=== PATIENT | male | born 1990 | race American Indian/Alaskan Native ===

== ENCOUNTER 2020-07-23 14:43 | Emergency (ER) | payer BC ==
--- NOTE | 2020-07-23 15:38 | Emergency Department Report ---
ED Abdominal Pain HPI - General Chief Complaint: Abdominal Pain Stated Complaint: ABD PAINS Time Seen by Provider: 07/23/20 15:20 Source: patient Mode of arrival: Ambulatory Limitations: No Limitations - History of Present Illness Initial Comments: pt is a 30 yo male who presents to the ED with c/o LLQ abd pain that began 3 days ago. he states the pain radiates to his left groin. he states he has generalized body aches. he denies any fever, cough, SOB, n/v/d, penile discharge, testicular edema. he denies any concerns for STD. he states he had a normal BM today. PMHx none. no allergies to meds. he denies any past abdominal surgical history. - Related Data Previous Rx's Medication Instructions Recorded Last Taken Type Acetaminophen/Codeine [Tylenol 1 tab PO Q6H PRN #12 tab 07/23/20 Unknown Rx /Codeine # 3 tab] Azithromycin [Zithromax Z-YOHANA] 250 mg PO DAILY 5 Days #6 tablet 07/23/20 Unknown Rx Prednisone [predniSONE 10 mg 10 mg PO .TAPER #1 tab.ds.pk 07/23/20 Unknown Rx (6-Day Pack, 21 Tabs)] Allergies Allergy/AdvReac Type Severity Reaction Status Date / Time No Known Allergies Allergy Unverified 07/23/20 15:35 ED Review of Systems ROS: Stated complaint: ABD PAINS Other details as noted in HPI Comment: All other systems reviewed and negative ED Past Medical Hx - Past Medical History Previous Medical History?: No Additional medical history: hx of elevated BP - Surgical History Past Surgical History?: No - Social History Smoking Status: Never Smoker Substance Use Type: Alcohol - Medications Home Medications: Home Medications Medication Instructions Recorded Confirmed Last Taken Type Acetaminophen/Codeine [Tylenol 1 tab PO Q6H PRN #12 tab 07/23/20 Unknown Rx /Codeine # 3 tab] Azithromycin [Zithromax Z-YOHANA] 250 mg PO DAILY 5 Days #6 tablet 07/23/20 Unknown Rx Prednisone [predniSONE 10 mg 10 mg PO .TAPER #1 tab.ds.pk 07/23/20 Unknown Rx (6-Day Pack, 21 Tabs)] ED Physical Exam - General Limitations: No Limitations General appearance: alert, in no apparent distress - Head Head exam: Present: atraumatic, normocephalic - Eye Eye exam: Present: normal appearance - ENT ENT exam: Present: mucous membranes moist - Respiratory Respiratory exam: Present: normal lung sounds bilaterally. Absent: respiratory distress, wheezes, rales, rhonchi, stridor, chest wall tenderness, accessory muscle use, decreased breath sounds, prolonged expiratory - Cardiovascular Cardiovascular Exam: Present: regular rate, normal rhythm, normal heart sounds. Absent: systolic murmur, diastolic murmur, rubs, gallop - GI/Abdominal GI/Abdominal exam: Present: soft, tenderness (LLQ and left inguinal ttp, no edema to the inguinal canal, no signs of hernia ), normal bowel sounds. Absent: distended, guarding, rebound, rigid - exam: Present: other (production artist: Lynnette lindsey PA-C, no testicular ttp, no scrotal edema, normal testicular lie, normal cremasteric reflex ). Absent: testicular tenderness, urethral discharge, scrotal swelling External exam: Present: normal external exam - Neurological Exam Neurological exam: Present: alert, oriented X3 - Psychiatric Psychiatric exam: Present: normal affect, normal mood - Skin Skin exam: Present: warm, dry, intact ED Course Vital Signs 07/23/20 07/23/20 15:01 18:05 Temperature 99.0 F 98.2 F Pulse Rate 93 H 83 Respiratory 18 16 Rate Blood Pressure 160/108 Blood Pressure 148/92 [Right] O2 Sat by Pulse 95 99 Oximetry ED Medical Decision Making - Lab Data Result diagrams: 07/23/20 15:29 07/23/20 15:29 Lab Results 07/23/20 07/23/20 07/23/20 Range/Units 15:29 15:29 15:35 WBC 4.5 (4.5-11.0) K/mm3 RBC 5.32 H (3.65-5.03) M/mm3 Hgb 16.0 H (11.8-15.2) gm/dl Hct 46.8 H (35.5-45.6) % MCV 88 (84-94) fl MCH 30 (28-32) pg MCHC 34 (32-34) % RDW 13.7 (13.2-15.2) % Plt Count 217 (140-440) K/mm3 Whitley % (Auto) Packaging Design Engineer Add Manual Diff Complete Total Counted 100 Seg Neuts % (Manual) 50.0 (40.0-70.0) % Lymphocytes % (Manual) 31.0 (13.4-35.0) % Monocytes % (Manual) 17.0 H (0.0-7.3) % Eosinophils % (Manual) 1.0 (0.0-4.3) % Basophils % (Manual) 1.0 (0.0-1.8) % Nucleated RBC % Not Reportable Seg Neutrophils # Man 2.3 (1.8-7.7) K/mm3 Band Neutrophils # 0.0 K/mm3 Lymphocytes # (Manual) 1.4 (1.2-5.4) K/mm3 Abs React Lymphs (Man) 0.0 K/mm3 Monocytes # (Manual) 0.8 (0.0-0.8) K/mm3 Eosinophils # (Manual) 0.0 (0.0-0.4) K/mm3 Basophils # (Manual) 0.0 (0.0-0.1) K/mm3 Metamyelocytes # 0.0 K/mm3 Myelocytes # 0.0 K/mm3 Promyelocytes # 0.0 K/mm3 Blast Cells # 0.0 K/mm3 WBC Morphology Not Reportable Hypersegmented Neuts Not Reportable Hyposegmented Neuts Not Reportable Hypogranular Neuts Not Reportable Smudge Cells Not Reportable Toxic Granulation Not Reportable Toxic Vacuolation Not Reportable Dohle Bodies Not Reportable Pelger-Huet Anomaly Not Reportable Rossana Rods Not Reportable Platelet Estimate Not Reportable Clumped Platelets Not Reportable Plt Clumps, EDTA Not Reportable Large Platelets Not Reportable Giant Platelets Rare Platelet Satelliting Not Reportable Plt Morphology Comment Not Reportable RBC Morphology Normal Dimorphic RBCs Not Reportable Polychromasia Not Reportable Hypochromasia Not Reportable Poikilocytosis Not Reportable Anisocytosis Not Reportable Microcytosis Not Reportable Macrocytosis Not Reportable Spherocytes Not Reportable Pappenheimer Bodies Not Reportable Sickle Cells Not Reportable Target Cells Not Reportable Tear Drop Cells Not Reportable Ovalocytes Not Reportable Helmet Cells Not Reportable Skelton-Brashear Bodies Not Reportable Loraine Rings Not Reportable Luis Eduardo Cells Not Reportable Bite Cells Not Reportable Crenated Cell Not Reportable Elliptocytes Not Reportable Acanthocytes (Spur) Not Reportable Rouleaux Not Reportable Hemoglobin C Crystals Not Reportable Schistocytes Not Reportable Malaria parasites Not Reportable Linden Bodies Not Reportable Hem Pathologist Commnt No Sodium 134 L (137-145) mmol/L Potassium 4.0 (3.6-5.0) mmol/L Chloride 98.4 (98-107) mmol/L Carbon Dioxide 31 H (22-30) mmol/L Anion Gap 9 mmol/L BUN 15 (9-20) mg/dL Creatinine 1.2 (0.8-1.3) mg/dL Estimated GFR > 60 ml/min BUN/Creatinine Ratio 13 % Glucose 103 H (75-100) mg/dL Calcium 9.4 (8.4-10.2) mg/dL Total Bilirubin 0.20 (0.1-1.2) mg/dL AST 21 (5-40) units/L ALT 23 (7-56) units/L Alkaline Phosphatase 66 (35-129) units/L Total Creatine Kinase 205 H (55-170) units/L Total Protein 7.7 (6.3-8.2) g/dL Albumin 4.5 (3.9-5) g/dL Albumin/Globulin Ratio 1.4 % Lipase 41 (13-60) units/L Urine Color (Yellow) Urine Turbidity (Clear) Urine pH (5.0-7.0) Ur Specific Newcomb (1.003-1.030) Urine Protein (Negative) mg/dL Urine Glucose (UA) (Negative) mg/dL Urine Ketones (Negative) mg/dL Urine Blood (Negative) Urine Nitrite (Negative) Urine Bilirubin (Negative) Urine Urobilinogen (<2.0) mg/dL Ur Leukocyte Esterase (Negative) Urine WBC (Auto) (0.0-6.0) /HPF Urine RBC (Auto) (0.0-6.0) /HPF Urine Mucus /HPF 07/23/20 Range/Units 15:41 WBC (4.5-11.0) K/mm3 RBC (3.65-5.03) M/mm3 Hgb (11.8-15.2) gm/dl Hct (35.5-45.6) % MCV (84-94) fl MCH (28-32) pg MCHC (32-34) % RDW (13.2-15.2) % Plt Count (140-440) K/mm3 Whitley % (Auto) Add Manual Diff Total Counted Seg Neuts % (Manual) (40.0-70.0) % Lymphocytes % (Manual) (13.4-35.0) % Monocytes % (Manual) (0.0-7.3) % Eosinophils % (Manual) (0.0-4.3) % Basophils % (Manual) (0.0-1.8) % Nucleated RBC % Seg Neutrophils # Man (1.8-7.7) K/mm3 Band Neutrophils # K/mm3 Lymphocytes # (Manual) (1.2-5.4) K/mm3 Abs React Lymphs (Man) K/mm3 Monocytes # (Manual) (0.0-0.8) K/mm3 Eosinophils # (Manual) (0.0-0.4) K/mm3 Basophils # (Manual) (0.0-0.1) K/mm3 Metamyelocytes # K/mm3 Myelocytes # K/mm3 Promyelocytes # K/mm3 Blast Cells # K/mm3 WBC Morphology Hypersegmented Neuts Hyposegmented Neuts Hypogranular Neuts Smudge Cells Toxic Granulation Toxic Vacuolation Dohle Bodies Pelger-Huet Anomaly Rossana Rods Platelet Estimate Clumped Platelets Plt Clumps, EDTA Large Platelets Giant Platelets Platelet Satelliting Plt Morphology Comment RBC Morphology Dimorphic RBCs Polychromasia Hypochromasia Poikilocytosis Anisocytosis Microcytosis Macrocytosis Spherocytes Pappenheimer Bodies Sickle Cells Target Cells Tear Drop Cells Ovalocytes Helmet Cells Skelton-Brashear Bodies Loraine Rings Luis Eduardo Cells Bite Cells Crenated Cell Elliptocytes Acanthocytes (Spur) Rouleaux Hemoglobin C Crystals Schistocytes Malaria parasites Linden Bodies Hem Pathologist Commnt Sodium (137-145) mmol/L Potassium (3.6-5.0) mmol/L Chloride (98-107) mmol/L Carbon Dioxide (22-30) mmol/L Anion Gap mmol/L BUN (9-20) mg/dL Creatinine (0.8-1.3) mg/dL Estimated GFR ml/min BUN/Creatinine Ratio % Glucose (75-100) mg/dL Calcium (8.4-10.2) mg/dL Total Bilirubin (0.1-1.2) mg/dL AST (5-40) units/L ALT (7-56) units/L Alkaline Phosphatase (35-129) units/L Total Creatine Kinase (55-170) units/L Total Protein (6.3-8.2) g/dL Albumin (3.9-5) g/dL Albumin/Globulin Ratio % Lipase (13-60) units/L Urine Color Yellow (Yellow) Urine Turbidity Clear (Clear) Urine pH 5.0 (5.0-7.0) Ur Specific Newcomb 1.033 H (1.003-1.030) Urine Protein 30 mg/dl (Negative) mg/dL Urine Glucose (UA) Neg (Negative) mg/dL Urine Ketones Neg (Negative) mg/dL Urine Blood Neg (Negative) Urine Nitrite Neg (Negative) Urine Bilirubin Neg (Negative) Urine Urobilinogen < 2.0 (<2.0) mg/dL Ur Leukocyte Esterase Neg (Negative) Urine WBC (Auto) 2.0 (0.0-6.0) /HPF Urine RBC (Auto) 1.0 (0.0-6.0) /HPF Urine Mucus 3+ /HPF Vital Signs 07/23/20 07/23/20 15:01 18:05 Temperature 99.0 F 98.2 F Pulse Rate 93 H 83 Respiratory 18 16 Rate Blood Pressure 160/108 Blood Pressure 148/92 [Right] O2 Sat by Pulse 95 99 Oximetry - Radiology Data Radiology results: report reviewed Ordering Physician: JOSE FITZGERALD Date of Service: 07/23/20 Procedure(s): CT abdomen pelvis w con Accession Number(s): [id number] cc: JOSE FITZGERALD CT ABDOMEN AND PELVIS WITH IV CONTRAST INDICATION: Left lower quadrant abdominal abd pain radiates to the left groin. COMPARISON: None available. TECHNIQUE: Axial CT images were obtained through the abdomen and pelvis after 100 mL IV contrast. All CT scans at this location are performed using CT dose reduction for ALARA by means of automated exposure control. FINDINGS -- ABDOMEN: Lung Bases: Patchy bibasilar airspace opacity concerning for pneumonia. Liver: Normal. Gallbladder: Contracted. Bile Ducts: Normal. Pancreas: Normal. Spleen: Normal. Adrenals: Normal. Right Kidney and Proximal Ureter: Normal. Left Kidney and Proximal Ureter: Normal. Stomach and Bowel: Normal. Lymph Nodes: No significant adenopathy. Aorta: No significant abnormality. IVC: Normal. Additional Findings: None. FINDINGS -- PELVIS: Urinary Bladder and Distal Ureters: Normal. Reproductive Organs: No acute abnormality. Appendix: Normal. Bowel: No acute abnormality. Free Fluid: None. Lymph Nodes: No significant adenopathy. Additional Findings: None. Skeletal System: No acute abnormality. IMPRESSION: 1. Patchy bibasilar airspace opacity suggestive of atypical pneumonia. 2. No acute intra-abdominal findings identified. Signer Name: Cornelio Biswas MD Signed: 07/23/2020 5:27 PM Workstation Name: [id number] Transcribed By: Dictated By: Cornelio Biswas MD Electronically Authenticated By: Cornelio Biswas MD Signed Date/Time: 07/23/201726 DD/ 23 TD/TT: - Medical Decision Making pt is a 30 yo male who presents to the ED with c/o LLQ abd pain that began 3 days ago. he states the pain radiates to his left groin. he states he has generalized body aches. he denies any fever, cough, SOB, n/v/d, penile discharge, testicular edema. he denies any concerns for STD. he states he had a normal BM today. PMHx none. no allergies to meds. he denies any past abdominal surgical history. Initial vitals with elevated blood pressure which improved upon repeat. On exam: LLQ and left inguinal ttp, no edema to the inguinal canal, no signs of hernia, production artist: Lynnette lindsey PA-C, no testicular ttp, no scrotal edema, normal testicular lie, normal cremasteric reflex. Labs are stable. UA is in the normal limits. CT abdomen pelvis with IV contrast 1. Patchy bibasilar airspace opacity suggestive of atypical pneumonia. 2. No acute intra-abdominal findings identified. Discussed all results with patient and answered questions. CT findings likely related to COVID-19 pneumonia given that it is currently a COVID-19 pandemic, discussed COVID-19 with patient, discussed strict return precautions, discussed outpatient testing, discussed self quarantine. Patient does not meet hospital criteria for admission or for COVID- 19 hospital testing. Patient given scription for azithromycin, prednisone, Tyle nol with codeine. Advised patient please take medication as prescribed. increase your fluid intake over the next several days. follow up with a primary care doctor. please self quarantine for 10 days from the onset of your symptoms. recommend for you to get outpatient COVID 19 testing. return to the emergency room for any new or worsening symptoms. Critical care attestation.: If time is entered above; I have spent that time in minutes in the direct care of this critically ill patient, excluding procedure time. ED Disposition Clinical Impression: Generalized body aches, Suspected COVID-19 virus infection Abdominal pain Qualifiers: Abdominal location: left lower quadrant Qualified Code(s): R10.32 - Left lower quadrant pain Pneumonia Qualifiers: Pneumonia type: due to unspecified organism Laterality: bilateral Lung location: lower lobe of lung Qualified Code(s): J18.9 - Pneumonia, unspecified organism Disposition: TO HOME OR SELFCARE Is pt being admited?: No Does the pt Need Aspirin: No Condition: Stable Instructions: COVID-19, COVID-19: How to Protect Yourself and Others - CDC, Prevent the Spread of COVID-19 if You Are Sick - CDC, Bacterial Pneumonia (ED) Additional Instructions: please take medication as prescribed. increase your fluid intake over the next several days. follow up with a primary care doctor. please self quarantine for 10 days from the onset of your symptoms. recommend for you to get outpatient COVID 19 testing. return to the emergency room for any new or worsening symptoms. Prescriptions: Prednisone [predniSONE 10 mg (6-Day Pack, 21 Tabs)] 10 mg PO .TAPER #1 tab.ds.pk Acetaminophen/Codeine [Tylenol /Codeine # 3 tab] 1 tab PO Q6H PRN #12 tab PRN Reason: Pain , Severe (7-10) Azithromycin [Zithromax Z-YOHANA] 250 mg PO DAILY 5 Days #6 tablet Referrals: ROD SARGENT MD [Primary Care Provider] - 2-3 Days TOBIAS CHESTER MD [Staff Physician] - 2-[address] [facility] [Provider Group] - 2-3 Days Forms: Work/School Release Form(ED) Time of Disposition: 17:39 Print Language: THAI
[2020-07-23 16:05] LABS: Alanine Aminotransferase 23 units/L (7-56); Albumin 4.5 g/dL (3.9-5); BUN/Creatinine Ratio 13; Blood Urea Nitrogen 15 mg/dL (9-20); Calcium 9.4 mg/dL (8.4-10.2); Hemolysis Index 8
[2020-07-23 16:06] LABS: Hematocrit 46.8 % (35.5-45.6); Mean Corpuscular HGB Conc 34 % (32-34); Mean Corpuscular Volume 88 fl (84-94); Platelet Count 217 K/mm3 (140-440); Red Blood Count 5.32 M/mm3 (3.65-5.03); Red Cell Distribution Width 13.7 % (13.2-15.2)
[2020-07-23 16:13] LABS: Bilirubin,Urine NEG (Negative); Blood,Urine NEG (Negative); Color,Urine Yellow (Yellow); Mucus,Urine 3+ /HPF; Urobilinogen,Urine < 2.0 mg/dL (<2.0)
[2020-07-23 16:55] LABS: Giant Platelets Rare; RBC Morphology Normal; Total Cells Counted 100
--- NOTE | 2020-07-23 17:31 | Cat Scan Report ---
CT ABDOMEN AND PELVIS WITH IV CONTRAST INDICATION: Left lower quadrant abdominal abd pain radiates to the left groin. COMPARISON: None available. TECHNIQUE: Axial CT images were obtained through the abdomen and pelvis after 100 mL IV contrast. All CT scans a t this location are performed using CT dose reduction for ALARA by means of automated exposure contro l. FINDINGS -- ABDOMEN: Lung Bases: Patchy bibasilar airspace opacity concerning for pneumonia. Liver: Normal. Gallbladder: Contracted. Bile Ducts: Normal. Pancreas: Normal. Spleen: Normal. Adrenals: Normal. Right Kidney and Proximal Ureter: Normal. Left Kidney and Proximal Ureter: Normal. Stomach and Bowel: Normal. Lymph Nodes: No significant adenopathy. Aorta: No significant abnormality. IVC: Normal. Additional Findings: None. FINDINGS -- PELVIS: Urinary Bladder and Distal Ureters: Normal. Reproductive Organs: No acute abnormality. Appendix: Normal. Bowel: No acute abnormality. Free Fluid: None. Lymph Nodes: No significant adenopathy. Additional Findings: None. Skeletal System: No acute abnormality. IMPRESSION: 1. Patchy bibasilar airspace opacity suggestive of atypical pneumonia. 2. No acute intra-abdominal findings identified. Signer Name: Cornelio Biswas MD Signed: 07/23/2020 5:27 PM Workstation Name: [id number]
[2020-07-23 18:06] VITALS: BP 148/92
== END 2020-07-23 18:15 | disposition home or self-care (01) ==
LOC: ED 14:43
DX: J18.9 Pneumonia, unspecified organism (principal); Z20.822 Contact with and (suspected) exposure to COVID-19; R10.32 Left lower quadrant pain; M79.10 Myalgia, unspecified site; Z79.2 Long term (current) use of antibiotics; Z79.899 Other long term (current) drug therapy
CPT/HCPCS: 36415; 74177; 80053; 81001; 82550; 83690; 85007; 85025; 99284; Q9967